=== PATIENT | male | born 1955 | race Caucasian/White ===

== ENCOUNTER 2019-02-13 03:28 | Emergency (ER) | payer MEDICARE, MEDICAID ==
[2019-02-13 03:43] VITALS: BP 158/91; PULSE 113
--- NOTE | 2019-02-13 04:00 | EDM.PDOC ---
ED HPI GENERAL MEDICAL PROBLEM - General Chief Complaint: General Stated Complaint: EPISATXSIS Time Seen by Provider: 02/13/19 03:40 Source of Information: Reports: Patient History Limitations: Reports: No Limitations - History of Present Illness INITIAL COMMENTS - FREE TEXT/NARRATIVE: 63 YO WM presents to ER complaining of epistaxis of the left nare. Pt reports bleeding began approximately 1 hour ago. Pt reports bleeding was mild and he had to blow his nose to get any blood at all to come out. Pt uses oxygen/bipap at home. Pt reports bleeding has stopped at this time. Pt denies lightheadedness. Current BP- 140/80's. Pt takes ASA 81mg but denies use of anticoagulation medications. Onset: Today Duration: Hour(s): (1) Location: Reports: Face Severity: Mild Improves with: Reports: None Worsens with: Reports: None Associated Symptoms: Reports: No Other Symptoms. Denies: Shortness of Breath, Weakness Treatments VENTILATING ENGINEER: Reports: Other (see below) Other Treatments VENTILATING ENGINEER: nasal saline spray - Related Data Allergies Allergy/AdvReac Type Severity Reaction Status Date / Time hay fever Allergy Swelling Uncoded 02/13/19 03:44 Home Meds: Home Meds Albuterol [Proventil] 2 puff INH Q6H PRN 05/19/14 [History] Aspirin [Halfprin] 81 mg PO DAILY 05/19/14 [History] Lisinopril/Hydrochlorothiazide [Lisinopril-Hctz 20-12.5 mg Tab] 1 each PO DAILY 07/13/14 [History] Albuterol/Ipratropium [DuoNeb 3.0-0.5 MG/3 ML] 3 ml INH Q6H PRN 06/19/16 [ History] Arformoterol [Brovana] 2 ml INH BID 06/19/16 [History] Budesonide [Pulmicort] 2 ml INH BID 06/19/16 [History] Codeine Phosphate/Guaifenesin [Cheratussin AC Syrup] 5 - 10 ml PO Q4H PRN [History] Nebivolol HCl [Bystolic] 1 tab PO DAILY 06/19/16 [History] Roflumilast [Daliresp] 1 tab PO DAILY 06/19/16 [History] Umeclidinium [place] [Incruse Ellipta*] 1 puff INH DAILY 06/19/16 [History] ALPRAZolam [Alprazolam] 0.25 mg PO TID PRN 02/13/19 [History] predniSONE [Prednisone] 10 mg PO DAILY 02/13/19 [History] Past Medical History HEENT History: Reports: Cataract Cardiovascular History: Reports: CAD, Cardiomyopathy, High Cholesterol, Hypertension, [place], SOB on Exertion Respiratory History: Reports: COPD, SOB, Other (See Below) Other Respiratory History: Home oxygen Musculoskeletal History: Reports: Arthritis Psychiatric History: Reports: Addiction - Infectious Disease History Infectious Disease History: Reports: Other (See Below) Other Infectious Disease History: Patient is unsure - Past Surgical History HEENT Surgical History: Reports: Cataract Surgery Social & Family History - Family History Family Medical History: Noncontributory HEENT: Reports: None Cardiac: Reports: None Respiratory: Reports: None GI: Reports: None : Reports: None OBGYN: Reports: None Musculoskeletal: Reports: None Neurological: Reports: None Psychiatric: Reports: None Endocrine/Metabolic: Reports: Diabetes, type II, Other (See Below) Hematologic: Reports: None Immunologic: Reports: None Dermatologic: Reports: None Oncologic: Reports: Other (See Below) - Caffeine Use Caffeine Use: Reports: Coffee, Energy Drinks, Soda ED ROS GENERAL - Review of Systems Review Of Systems: See Below Constitutional: Reports: No Symptoms HEENT: Reports: Nosebleed Respiratory: Reports: No Symptoms Cardiovascular: Reports: No Symptoms Endocrine: Reports: No Symptoms GI/Abdominal: Reports: No Symptoms : Reports: No Symptoms Musculoskeletal: Reports: No Symptoms Skin: Reports: No Symptoms Neurological: Reports: No Symptoms Psychiatric: Reports: No Symptoms Hematologic/Lymphatic: Reports: No Symptoms Immunologic: Reports: No Symptoms ED EXAM, GENERAL - Physical Exam Exam: See Below Exam Limited By: No Limitations General Appearance: Alert, WD/WN, No Apparent Distress Nose: Other (no active bleeding but some dried blood to left nare noted on exam) Throat/Mouth: Normal Inspection, Normal Lips, Normal Teeth, Normal Gums, Normal Oropharynx, Normal Voice, No Airway Compromise Head: Atraumatic, Normocephalic ED EPISTAXIS PROCEDURES - Epistaxis Procedure Indication: Controlled Recent anticoagulants/antiplatlets: No Uncontrolled HTN: No Recent septal/nasal surgery: No Site of bleeding: Left Nare Clearing of clots: Patient Blew Nose Topical Meds: Phenylephrine Ice pack to area: Yes Complications: No Course - Vital Signs Last Recorded V/S: Last Vital Signs Temp 36.7 C 02/13/19 03:32 Pulse 113 H 02/13/19 03:32 Resp 20 02/13/19 03:32 BP 158/91 H 02/13/19 03:32 Pulse Ox 93 L 02/13/19 03:32 - Orders/Labs/Meds Orders: Active Orders 24 hr Category Date Time Status Oxymetazoline [Afrin Original 0.05% Nasal [place]] Med 02/13/19 04:00 Once 2 ml GRACIE ONETIME ONE Departure - Departure Time of Disposition: 04:09 Disposition: Home, Self-Care 01 Condition: Good Clinical Impression: Anterior epistaxis - Discharge Information Instructions: Nosebleed, Adult Forms: ED Department Discharge Additional Instructions: 1. Discharge home 2. Vaseline lubrication to mucous membranes daily to avoid drying and bleeding 3. Afrin nasal spray- 2 sprays each nostril as needed with 5 minutes of controlled pressure at home if bleeding returns 4. follow up with PCP for further evaluation and treatment 5. return to ER for worsening symptoms - My Orders Last 24 Hours: My Active Orders 02/13/19 04:00 Oxymetazoline [Afrin Original 0.05% Nasal [place]] 2 ml GRACIE ONETIME ONE - Assessment/Plan Last 24 Hours: My Active Orders 02/13/19 04:00 Oxymetazoline [Afrin Original 0.05% Nasal [place]] 2 ml GRACIE ONETIME ONE Assessment:: 1. Epistasis of left nare- controlled Plan: 1. Discharge home 2. Vaseline lubrication to mucous membranes daily to avoid drying and bleeding 3. Afrin nasal spray- 2 sprays each nostril as needed with 5 minutes of controlled pressure at home if bleeding returns 4. follow up with PCP for further evaluation and treatment 5. return to ER for worsening symptoms
[2019-02-13] MEDS: Oxymetazoline 0.05% Nasal Spray 15 ML Bottle NAS ONE (04:10)
== END 2019-02-13 04:28 | disposition home or self-care (01) ==
LOC: KA.ED 03:28
DX: R04.0 Epistaxis (principal); I25.2 Old myocardial infarction; I10 Essential (primary) hypertension; J44.9 Chronic obstructive pulmonary disease, unspecified; M19.90 Unspecified osteoarthritis, unspecified site; Z79.82 Long term (current) use of aspirin; Z79.899 Other long term (current) drug therapy; Z79.51 Long term (current) use of inhaled steroids; Z91.09 Other allergy status, other than to drugs and biological substances; Z99.81 Dependence on supplemental oxygen
CPT/HCPCS: 99283; A9270; 30901

== ENCOUNTER 2019-04-23 11:51 | Emergency (ER) | payer MEDICARE, MEDICAID ==
[2019-04-23 12:08] VITALS: BP 150/90; PULSE 100
--- NOTE | 2019-04-23 12:34 | EDM.PDOC ---
ED HPI GENERAL MEDICAL PROBLEM - General Chief Complaint: ENT Problem Stated Complaint: BAD TOOTHACHE Time Seen by Provider: 04/23/19 12:00 Source of Information: Reports: Patient History Limitations: Reports: No Limitations - History of Present Illness INITIAL COMMENTS - FREE TEXT/NARRATIVE: 63-year-old male presents emergency room with complaints of increasing mouth pain due to poor dental hygiene. He was seen in the clinic yesterday was given codeine and started on an oral antibiotic. He has a long history of poor dental care. He does not follow with a dentist. He's had prior tooth extractions and erosion of the tooth enamel and gums. Onset: Gradual Duration: Chronic Location: Reports: Face Quality: Reports: Ache Severity: Moderate Improves with: Reports: None Worsens with: Reports: None Associated Symptoms: Reports: Shortness of Breath (Chronic due to severe COPD). Denies: Fever/Chills, Nausea/Vomiting, Weakness Tooth/Teeth Pain Score (Numeric/FACES): 8 - Related Data Allergies Allergy/AdvReac Type Severity Reaction Status Date / Time hay fever Allergy Swelling Uncoded 04/23/19 12:08 Home Meds: Home Meds Albuterol [Proventil] 2 puff INH Q6H PRN 05/19/14 [History] Aspirin [Halfprin] 81 mg PO DAILY 05/19/14 [History] Lisinopril/Hydrochlorothiazide [Lisinopril-Hctz 20-12.5 mg Tab] 1 each PO DAILY 07/13/14 [History] Albuterol/Ipratropium [DuoNeb 3.0-0.5 MG/3 ML] 3 ml INH Q6H PRN 06/19/16 [ History] Arformoterol [Brovana] 2 ml INH BID 06/19/16 [History] Budesonide [Pulmicort] 2 ml INH BID 06/19/16 [History] Codeine Phosphate/Guaifenesin [Cheratussin AC Syrup] 5 - 10 ml PO Q4H PRN [History] Nebivolol HCl [Bystolic] 1 tab PO DAILY 06/19/16 [History] Roflumilast [Daliresp] 1 tab PO DAILY 06/19/16 [History] Umeclidinium [place] [Incruse Ellipta*] 1 puff INH DAILY 06/19/16 [History] ALPRAZolam [Alprazolam] 0.25 mg PO TID PRN 02/13/19 [History] predniSONE [Prednisone] 10 mg PO DAILY 02/13/19 [History] Past Medical History HEENT History: Reports: Cataract, Epistaxis Cardiovascular History: Reports: CAD, Cardiomyopathy, High Cholesterol, Hypertension, [place], SOB on Exertion Respiratory History: Reports: COPD, SOB, Other (See Below) Other Respiratory History: Home oxygen & CPAP Musculoskeletal History: Reports: Arthritis Psychiatric History: Reports: Addiction, Anxiety - Infectious Disease History Infectious Disease History: Reports: Other (See Below) Other Infectious Disease History: Patient is unsure - Past Surgical History Head Surgeries/Procedures: Reports: None HEENT Surgical History: Reports: Cataract Surgery Social & Family History - Family History Family Medical History: Noncontributory HEENT: Reports: None Cardiac: Reports: None Respiratory: Reports: None GI: Reports: None : Reports: None OBGYN: Reports: None Musculoskeletal: Reports: None Neurological: Reports: None Psychiatric: Reports: None Endocrine/Metabolic: Reports: Diabetes, type II, Other (See Below) Hematologic: Reports: None Immunologic: Reports: None Dermatologic: Reports: None Oncologic: Reports: Other (See Below) - Caffeine Use Caffeine Use: Reports: Coffee, Energy Drinks, Soda ED ROS ENT - Review of Systems Review Of Systems: Comprehensive ROS is negative, except as noted in HPI. ED EXAM, ENT - Physical Exam Exam: See Below Exam Limited By: No Limitations General Appearance: Alert, Thin Nose: Normal Inspection Mouth/Throat: Bleeding, Dental Pain, Dental Tenderness, Gum Swelling. No: Dental Abcess, Peritonsillar Mass, Pharyngeal Erythema, Tonsillar Erythema, Tonsillar Exudates, Tonsillar Swelling, Uvular Deviation, Uvular Edema Head: Atraumatic, Normocephalic. No: Facial Tenderness, Sinus Tenderness Neck: Normal Inspection, Supple Respiratory/Chest: No Respiratory Distress, Lungs Clear, Prolonged Expiration ( Due to severe COPD) Cardiovascular: Regular Rate, Rhythm, Systolic Murmur GI/Abdominal: Soft, Non-Tender Neurological: Alert, Oriented, No Motor/Sensory Deficits Course - Vital Signs Last Recorded V/S: Last Vital Signs Temp 98.3 F 04/23/19 12:03 Pulse 100 04/23/19 12:03 Resp 24 H 04/23/19 12:03 BP 150/90 H 04/23/19 12:03 Pulse Ox 91 L 04/23/19 12:03 - Orders/Labs/Meds Meds: Medications Discontinued Medications Generic Name Dose Route Start Last Admin Trade Name Katheryn PRN Reason Stop Dose Admin Ceftriaxone Sodium 1 gm 04/23/19 12:22 Rocephin IM 04/23/19 12:23 ONETIME ONE Ketorolac Tromethamine 30 mg 04/23/19 12:22 Toradol IM 04/23/19 12:23 ONETIME ONE Lidocaine HCl Confirm 04/23/19 12:21 Xylocaine 1% Administered 04/23/19 12:22 Dose 20 ml .ROUTE .STK-MED ONE Departure - Departure Time of Disposition: 12:50 Disposition: Home, Self-Care 01 Condition: Fair Clinical Impression: Dental caries, Dental caries extending into dentin, Dental abscess - Discharge Information Instructions: Dental Abscess, [id number], Dental Extraction, [id number] Referrals: Dionne Gooden PA-C [Primary Care Provider] - Forms: ED Department Discharge - Assessment/Plan Assessment:: 1. Dental pain. 2. Dental abscess Plan: 1. Rocephin 1 g IM given today 2. Toradol 30 mg IM given today. Toradol 10mg TID PO for 5 days. 3. Follow-up with dentist on Thursday. 4. Continue with your codeine and oral antibiotics prescribed by her primary care.
[2019-04-23] MEDS: Ketorolac 30 MG/ML SDV IM ONE (12:40)
[2019-04-23] MEDS: cefTRIAXone 1 GM Vial IM ONE (12:45)
[2019-04-23] MEDS: Lidocaine 1% 20 ML MDV ONE (12:45)
[2019-04-23] MEDS: Ketorolac 10 MG Tab PO SCH (12:50)
== END 2019-04-23 12:55 | disposition home or self-care (01) ==
LOC: KA.ED 11:51
DX: K04.7 Periapical abscess without sinus (principal); K02.9 Dental caries, unspecified; F41.9 Anxiety disorder, unspecified; I25.10 Atherosclerotic heart disease of native coronary artery without angina pectoris; I10 Essential (primary) hypertension; Z79.82 Long term (current) use of aspirin; Z79.899 Other long term (current) drug therapy; Z91.09 Other allergy status, other than to drugs and biological substances
CPT/HCPCS: 96372; 99282; A9270; J0696; J1885; 99283

== ENCOUNTER 2020-10-21 19:55 | Emergency (ER) | payer MEDICARE, MEDICAID ==
--- NOTE | 2020-10-21 20:13 | EDM.PDOC ---
ED HPI GENERAL MEDICAL PROBLEM - General Chief Complaint: General Stated Complaint: Right Upper Leg Pain Time Seen by Provider: 10/21/20 20:13 Source of Information: Reports: Patient - History of Present Illness INITIAL COMMENTS - FREE TEXT/NARRATIVE: Charles, 64-year-old male, presents emergency department this evening with a 5 or 6-day history of pain in his right lower extremity. He states it started with knee pain with mild swelling at its onset. He stated then that the knee has still continued to bother some but not as bad as he has been using Aleve. He states now the pain has become more to the groin, medial thigh and anterior thigh. He states the Aleve is no longer providing any benefit and has noted mild puffiness/swelling to the extremity from the knee and up. Denies any travel other than to [place] for his eye injection every 5 weeks. He does acknowledge that he sits crosslegged at times but otherwise has no provoking activity or positioning for DVT. Denies any injury nor strain. He has had no other issues of acuity with chronic lung disease and hypertension being somewhat controlled. He did not have portable oxygen for his transport to the emergency department and was somewhat winded when he first arrived. Onset: Gradual Onset Date: 10/16/20 Duration: Day(s):, Getting Worse Location: Reports: Lower Extremity, Right Quality: Reports: Ache, Throbbing Severity: Severe Improves with: Reports: Medication Worsens with: Reports: Movement Context: Reports: Activity Associated Symptoms: Reports: No Other Symptoms Right Upper Leg Pain Score (Numeric/FACES): 6 - Related Data Allergies Allergy/AdvReac Type Severity Reaction Status Date / Time hay fever Allergy Swelling Uncoded 10/21/20 20:11 Home Meds: Home Meds Albuterol [Proventil] 2 puff INH Q6H PRN 05/19/14 [History] Aspirin [Halfprin] 81 mg PO DAILY 05/19/14 [History] Lisinopril/Hydrochlorothiazide [Lisinopril-Hctz 20-12.5 mg Tab] 1 each PO DAILY 07/13/14 [History] Albuterol/Ipratropium [DuoNeb 3.0-0.5 MG/3 ML] 3 ml INH Q6H PRN 06/19/16 [History] Arformoterol [Brovana] 2 ml INH BID 06/19/16 [History] Budesonide [Pulmicort] 2 ml INH BID 06/19/16 [History] Codeine Phosphate/Guaifenesin [Cheratussin AC Syrup] 5 - 10 ml PO Q4H PRN 06/19/16 [History] Nebivolol HCl [Bystolic] 10 mg PO DAILY 06/19/16 [History] Roflumilast [Daliresp] 500 mg PO DAILY 06/19/16 [History] Umeclidinium [place] [Incruse Ellipta*] 1 puff INH DAILY 06/19/16 [History] ALPRAZolam [Alprazolam] 0.25 mg PO TID PRN 02/13/19 [History] predniSONE [Prednisone] 10 mg PO DAILY@1200 02/13/19 [History] Past Medical History HEENT History: Reports: Cataract, Epistaxis Other HEENT History: poor dentation Cardiovascular History: Reports: CAD, Cardiomyopathy, High Cholesterol, Hypertension, [place], SOB on Exertion Respiratory History: Reports: COPD, SOB, Other (See Below) Other Respiratory History: Home oxygen & CPAP Musculoskeletal History: Reports: Arthritis Psychiatric History: Reports: Addiction, Anxiety - Infectious Disease History Infectious Disease History: Reports: Other (See Below) Other Infectious Disease History: Patient is unsure - Past Surgical History Head Surgeries/Procedures: Reports: None HEENT Surgical History: Reports: Cataract Surgery Social & Family History - Family History Family Medical History: No Pertinent Family History HEENT: Reports: None Cardiac: Reports: None Respiratory: Reports: None GI: Reports: None : Reports: None OBGYN: Reports: None Musculoskeletal: Reports: None Neurological: Reports: None Psychiatric: Reports: None Endocrine/Metabolic: Reports: Diabetes, type II, Other (See Below) Hematologic: Reports: None Immunologic: Reports: None Dermatologic: Reports: None Oncologic: Reports: Other (See Below) - Tobacco Use Tobacco Use Status *Q: Former Tobacco User - Caffeine Use Caffeine Use: Reports: Coffee, Energy Drinks, Soda ED ROS GENERAL - Review of Systems Review Of Systems: Comprehensive ROS is negative, except as noted in HPI. ED EXAM, GENERAL - Physical Exam Exam: See Below Free Text/Narrative:: Alert, oriented, with no cyanosis nor pallor. HEENT is negative discharge or deformity has 2 L of oxygen in place and is breathing slightly fast in the upper 20s but his saturation is now up to 99%. He is somewhat hypertensive at 133/103 and appears may be slightly anxious secondary of the risk of blood clot that he was informed by a friend. Neck is soft supple no lymphadenopathy. Thorax is raspy diminished bases with no wheezes nor crackles. Cardiac is S1-S2 tachycardic low 100 and coming down in the mid 90s during examination. I do not appreciate any significant murmur. Abdomen is soft no tenderness. Femoral pulses are present and equal bilateral. There is tenderness to the right anterior medial thigh and the proximal half. There is no cyanosis, ecchymosis, no evidence of injury to either of the lower extremities with both post terrier tibialis and dorsalis pedis pulses present. Skin is warm and dry no evidence of cyanosis no delay in capillary refill to the feet. Palpable tenderness with no musculature nor bone abnormality palpated. There is no tenderness in the hip region with no crepitus and motion of the hip. He is able to flex and extend the knee as well as the hip with mild discomfort with flexion of the hip to the thigh region. Course - Vital Signs Last Recorded V/S: Last Vital Signs Temp 97.0 F 10/21/20 20:09 Pulse 105 H 10/21/20 20:15 Resp 28 H 10/21/20 20:15 BP 133/103 H 10/21/20 20:42 Pulse Ox 97 10/21/20 20:15 - Orders/Labs/Meds Labs: Laboratory Tests 10/21/20 10/21/20 10/21/20 Range/Units 20:35 20:35 20:35 WBC 10.00 (5.00-10.00) 10^3/uL RBC 4.40 L (4.50-6.00) 10^6/uL Hgb 13.3 (13.0-17.0) g/dL Hct 39.2 L (40.0-52.0) % MCV 89.1 (82.0-92.0) fL MCH 30.2 (27.0-31.0) pg MCHC 33.9 (32.0-36.0) g/dL RDW 13.0 (11.5-14.5) % Plt Count 283 (150-400) 10^3/uL MPV 8.0 (7.4-10.4) fL Immature Gran % (Auto) 0.1 (0.0-5.0) % Neut % (Auto) 88.0 H (50.0-70.0) % Lymph % (Auto) 3.5 L (20.0-40.0) % [place] % (Auto) 8.0 (2.0-8.0) % Eos % (Auto) 0.2 L (1.0-3.0) % Baso % (Auto) 0.2 (0.0-1.0) % Neut # (Auto) 8.80 H (2.50-7.00) 10^3/uL Lymph # (Auto) 0.35 L (1.00-4.00) 10^3/uL [place] # (Auto) 0.80 (0.10-0.80) 10^3/uL Eos # (Auto) 0.02 L (0.10-0.30) 10^3/uL Baso # (Auto) 0.02 (0.00-0.10) 10^3/uL Immature Gran # (Auto) 0.01 (0.00-0.50) 10^3/uL D-Dimer, Quantitative < 100 (<400) ng/mL Sodium 130 L (136-145) mmol/L Potassium 3.9 (3.5-5.1) mmol/L Chloride 91 L (98-107) mmol/L Carbon Dioxide 32.5 H (21.0-32.0) mmol/L Anion Gap 10.4 (5-15) mmol/L BUN 19 H (7-18) mg/dL Creatinine 0.88 (0.51-1.17) mg/dL Est Cr Clr Drug Dosing 70.36 mL/min Estimated GFR (MDRD) > 60 mL/min Glucose 126 (70-140) mg/dL Calcium 9.2 (8.7-10.3) mg/dL Total Bilirubin 0.5 (0.2-1.0) mg/dL AST 21 (15-37) U/L ALT 33 (14-63) U/L Alkaline Phosphatase 67 (46-116) U/L Total Protein 7.0 (6.4-8.2) g/dL Albumin 4.00 (3.40-5.00) g/dL Meds: Medications Discontinued Medications Generic Name Dose Route Start Last Admin Trade Name Katheryn PRN Reason Stop Dose Admin Clonidine HCl 0.1 mg 10/21/20 20:38 10/21/20 20:42 Clonidine 0.1 Mg Tab PO 10/21/20 20:39 0.1 mg ONETIME ONE Administration Ketorolac Tromethamine 60 mg 10/21/20 21:06 Ketorolac 60 Mg/2 Ml Sdv IM 10/21/20 21:07 ONETIME ONE Departure - Departure Time of Disposition: 21:13 Disposition: Home, Self-Care 01 Condition: Fair Clinical Impression: Right thigh pain Hypertension Qualifiers: Hypertension type: essential hypertension Qualified Code(s): I10 - Essential (primary) hypertension - Discharge Information *PRESCRIPTION DRUG MONITORING PROGRAM REVIEWED*: Not Applicable *COPY OF PRESCRIPTION DRUG MONITORING REPORT IN PATIENT MARYSE: Not Applicable Instructions: Hypertension, Adult, [id number] Referrals: Dionne Gooden PA-C [Primary Care Provider] - Forms: ED Department Discharge Additional Instructions: Your lab work is all within normal limits other than a slight shift in your electrolytes. Your kidney function is good as well as the D-dimer which measures the risk for blood clot is in the negative range. We will give you an injection of Toradol here tonight that will help with inflammation and pain. Do not take any more Aleve or naproxen sodium until tomorrow. If this does not give you adequate control of your discomfort, consider contacting the clinic for a recheck as needed. If this medication is beneficial for you and your pain continues starts to increase again tomorrow, consider contacting the clinic to discuss medication variations in the options. Physical therapy may be a consideration for this as it appears it might be a muscle strain to the groin region. You may attempt heat or ice to the area to see if that helps. Continue all of your prescription medications as directed. Follow-up with clinic as needed or return to the emergency department if becomes severe in the non-clinic hours. Sepsis Event Note (ED) - Evaluation Sepsis Screening Result: No Definite Risk - Focused Exam Vital Signs: Vital Signs Temp Pulse Resp BP BP Pulse Ox 10/21/20 20:42 133/103 H 10/21/20 20:15 105 H 28 H 155/101 H 97 10/21/20 20:09 97.0 F 108 H 32 H 171/111 H 95 - Problem List & Annotations (1) Right thigh pain SNOMED Code(s): 21920499, 896203069 Code(s): M79.651 - PAIN IN RIGHT THIGH Status: Acute Priority: High (2) Hypertension SNOMED Code(s): 13235374 Code(s): I10 - ESSENTIAL (PRIMARY) HYPERTENSION Status: Chronic Priority: Medium Qualifiers: Hypertension type: essential hypertension Qualified Code(s): I10 - Essential (primary) hypertension - Problem List Review Problem List Initiated/Reviewed/Updated: Yes - Assessment/Plan Plan: Your lab work is all within normal limits other than a slight shift in your electrolytes. Your kidney function is good as well as the D-dimer which measures the risk for blood clot is in the negative range. We will give you an injection of Toradol here tonight that will help with inflammation and pain. Do not take any more Aleve or naproxen sodium until tomorrow. If this does not give you adequate control of your discomfort, consider contacting the clinic for a recheck as needed. If this medication is beneficial for you and your pain continues starts to increase again tomorrow, consider contacting the clinic to discuss medication variations in the options. Physical therapy may be a consideration for this as it appears it might be a muscle strain to the groin region. You may attempt heat or ice to the area to see if that helps. Continue all of your prescription medications as directed. Follow-up with clinic as needed or return to the emergency department if becomes severe in the non-clinic hours.
[2020-10-21] MEDS ORDERED: cloNIDine 0.1 MG Tab PO ONE (20:38)
[2020-10-21 21:04] LABS: ANION GAP 10.4 mmol/L (5-15); CHLORIDE,CL 91 mmol/L (98-107); SODIUM,NA 130 mmol/L (136-145)
[2020-10-21] MEDS ORDERED: Ketorolac 60 MG/2 ML SDV IM ONE (21:06)
[2020-10-21 21:13] VITALS: BP 134/93; PULSE 89
== END 2020-10-21 21:22 | disposition home or self-care (01) ==
LOC: KA.ED 19:55
DX: M79.651 Pain in right thigh (principal); I10 Essential (primary) hypertension; I25.10 Atherosclerotic heart disease of native coronary artery without angina pectoris; I11.9 Hypertensive heart disease without heart failure; E78.00 Pure hypercholesterolemia, unspecified; I25.2 Old myocardial infarction; J44.9 Chronic obstructive pulmonary disease, unspecified; Z91.048 Other nonmedicinal substance allergy status
CPT/HCPCS: 36415; 80053; 85025; 85379; 96372; 99283; A9270-GY; J1885

== ENCOUNTER 2020-10-24 09:00 | Inpatient (IN) | payer MEDICARE, MEDICAID ==
[2020-10-24] MEDS ORDERED: Sodium Chloride 0.9% 10 ML Syringe FLUSH PRN (09:15)
--- NOTE | 2020-10-24 09:18 | EDM.PDOC ---
ED HPI GENERAL MEDICAL PROBLEM - General Chief Complaint: Lower Extremity Injury/Pain Stated Complaint: LEG PAIN,SOB Time Seen by Provider: 10/24/20 09:10 Source of Information: Reports: Patient History Limitations: Reports: No Limitations - History of Present Illness INITIAL COMMENTS - FREE TEXT/NARRATIVE: 64 YO WM PRESENTS TO ER WITH RIGHT THIGH PAIN AND SWELLING. PT REPORTS HE WAS SEEN IN ER 2 DAYS AGO AND THEN IN CLINIC YESTERDAY FOR SAME COMPLAINT. PT REPORTS HE'S SCHEDULED FOR VENOUS DOPPLER THIS AM BUT HE WAS HAVING PROGRESSIVE SHORTNESS OF BREATH WHICH WORSENED THIS AM PROMPTING ER EVALUATION. PT WITH SEVERE COPD AND O2 DEPENDENT AT HOME. PT DENIES HAVING TO USE MORE O2 AT HOME AND IS CURRENTLY ON 2L O2 WITH SAO2 94%. PT DENIES CHEST PAIN OR PEDAL EDEMA. PT DENIES FEVER/CHILLS, NO NAUSEA/VOMITING. PT REPORTS NONPRODUCTIVE COUGH WITH CHRONIC CHEST CONGESTION. Duration: Week(s): (1) Location: Reports: Lower Extremity, Right, Generalized Quality: Reports: Ache Severity: Mild Associated Symptoms: Reports: Cough, Malaise, Shortness of Breath. Denies: Confusion, Chest Pain, Diaphoresis, Fever/Chills, Headaches, Nausea/Vomiting, Rash, Syncope Treatments UNDERGRADUATE INTERN: Reports: Oxygen Right Upper Leg Pain Score (Numeric/FACES): 9 - Related Data Allergies Allergy/AdvReac Type Severity Reaction Status Date / Time hay fever Allergy Swelling Uncoded 10/24/20 09:03 Home Meds: Home Meds Albuterol [Proventil] 2 puff INH Q6H PRN 05/19/14 [History] Aspirin [Halfprin] 81 mg PO DAILY 05/19/14 [History] Lisinopril/Hydrochlorothiazide [Lisinopril-Hctz 20-12.5 mg Tab] 1 each PO DAILY 07/13/14 [History] Albuterol/Ipratropium [DuoNeb 3.0-0.5 MG/3 ML] 3 ml INH Q6H PRN 06/19/16 [History] Arformoterol [Brovana] 2 ml INH BID 06/19/16 [History] Budesonide [Pulmicort] 2 ml INH BID 06/19/16 [History] Codeine Phosphate/Guaifenesin [Cheratussin AC Syrup] 5 - 10 ml PO Q4H PRN 06/19/16 [History] Nebivolol HCl [Bystolic] 10 mg PO DAILY 06/19/16 [History] Roflumilast [Daliresp] 500 mg PO DAILY 06/19/16 [History] Umeclidinium Boron [Incruse Ellipta*] 1 puff INH DAILY 06/19/16 [History] ALPRAZolam [Alprazolam] 0.25 mg PO TID PRN 02/13/19 [History] predniSONE [Prednisone] 10 mg PO DAILY@1200 02/13/19 [History] Past Medical History HEENT History: Reports: Cataract, Epistaxis Other HEENT History: poor dentation Cardiovascular History: Reports: CAD, Cardiomyopathy, High Cholesterol, Hypertension, RI, SOB on Exertion Respiratory History: Reports: COPD, SOB, Other (See Below) Other Respiratory History: Home oxygen & CPAP Musculoskeletal History: Reports: Arthritis Psychiatric History: Reports: Addiction, Anxiety - Infectious Disease History Infectious Disease History: Reports: Other (See Below) Other Infectious Disease History: Patient is unsure - Past Surgical History Head Surgeries/Procedures: Reports: None HEENT Surgical History: Reports: Cataract Surgery Social & Family History - Family History Family Medical History: No Pertinent Family History HEENT: Reports: None Cardiac: Reports: None Respiratory: Reports: None GI: Reports: None : Reports: None OBGYN: Reports: None Musculoskeletal: Reports: None Neurological: Reports: None Psychiatric: Reports: None Endocrine/Metabolic: Reports: Diabetes, type II, Other (See Below) Hematologic: Reports: None Immunologic: Reports: None Dermatologic: Reports: None Oncologic: Reports: Other (See Below) - Caffeine Use Caffeine Use: Reports: Coffee Review of Systems - Review of Systems Review Of Systems: See Below Constitutional: Reports: No Symptoms Eyes: Reports: No Symptoms Ears: Reports: No Symptoms Nose: Reports: No Symptoms Mouth/Throat: Reports: No Symptoms Respiratory: Reports: Shortness of Breath, Wheezing, Cough. Denies: Hemoptysis Cardiovascular: Reports: No Symptoms GI/Abdominal: Reports: No Symptoms Genitourinary: Reports: No Symptoms Musculoskeletal: Reports: Leg Pain Skin: Reports: Bruising, Erythema Neurological: Reports: No Symptoms Psychiatric: Reports: No Symptoms ED EXAM, GENERAL - Physical Exam Exam: See Below Exam Limited By: No Limitations General Appearance: Alert, WD/WN, No Apparent Distress Head: Atraumatic, Normocephalic Neck: Normal Inspection, Supple, Non-Tender, Full Range of Motion Respiratory/Chest: No Respiratory Distress, Chest Non-Tender, Decreased Breath Sounds, Wheezing, Accessory Muscle Use Cardiovascular: Normal Peripheral Pulses, Regular Rate, Rhythm, No Edema, No Gallop, No JVD, No Murmur, No Rub GI/Abdominal: Normal Bowel Sounds, Soft, Non-Tender, No Organomegaly, No Distention, No Abnormal Bruit, No Mass Back Exam: Normal Inspection, Full Range of Motion, NT Extremities: Normal Inspection, Normal Range of Motion, Non-Tender, Normal Capillary Refill, No Pedal Edema Neurological: Alert, Oriented, CN II-XII Intact, Normal Cognition, Normal Gait, Normal Reflexes, No Motor/Sensory Deficits Psychiatric: Normal Affect, Normal Mood Skin Exam: Warm, Dry, Intact, Normal Color, No Rash Lymphatic: No Adenopathy #1 Interpretation EKG Date: 10/24/20 Time: 09:25 Rhythm: NSR Rate (Beats/Min): 93 [place]: Normal QRS: RBBB ST-T: Normal QT: Normal Course - Vital Signs Last Recorded V/S: Last Vital Signs Temp 99.0 F 10/24/20 09:06 Pulse 100 10/24/20 10:24 Resp 24 H 10/24/20 09:06 BP 152/96 H 10/24/20 09:06 Pulse Ox 97 10/24/20 09:06 - Orders/Labs/Meds Orders: Active Orders 24 hr Category Date Time Status EKG Documentation Completion [RC] ASDIRECTED Care 10/24/20 09:17 Active Peripheral IV Care [RC] . DIRECTED Care 10/24/20 09:17 Active RT Aerosol Therapy [RC] ASDIRECTED Care 10/24/20 10:09 Active CORONAVIRUS COVID-19 RAPID [MOLEC] Stat Lab 10/24/20 09:48 Ordered Sodium Chloride 0.9% @ 999 MLS/HR (1000ml) Med 10/24/20 10:37 Ordered Sodium Chloride 0.9% [Normal Saline] 1,000 ml IV .BOLUS Sodium Chloride 0.9% [Normal Saline] 100 ml Med 10/24/20 10:45 Active IV ASDIRECTED Sodium Chloride 0.9% [Normal Saline] 50 ml Med 10/24/20 09:45 Active IV ASDIRECTED Sodium Chloride 0.9% [Saline Flush] Med 10/24/20 09:15 Active 10 ml FLUSH Q8HR PRN Peripheral IV Insertion Adult [OM.PC] Routine Oth 10/24/20 09:15 Ordered EKG 12 Lead [EK] Stat Ther 10/24/20 09:15 Ordered Medication Orders Sodium Chloride (Normal Saline) 50 mls @ 200 mls/min IV ASDIRECTED AXEL Last Admin: 10/24/20 09:59 Dose: 200 mls/min Documented by: MAUREEN Sodium Chloride (Normal Saline) 100 mls @ 200 mls/hr IV ASDIRECTED AXEL Sodium Chloride (Normal Saline) 1,000 mls @ 999 mls/hr IV .BOLUS ONE Stop: 10/24/20 11:37 Sodium Chloride (Sodium Chloride 0.9% 10 Ml Syringe) 10 ml FLUSH Q8HR PRN PRN Reason: keep vein open Labs: Laboratory Tests 10/24/20 10/24/20 10/24/20 Range/Units 09:35 09:35 09:35 WBC 9.32 (5.00-10.00) 10^3/uL RBC 4.02 L (4.50-6.00) 10^6/uL Hgb 12.4 L (13.0-17.0) g/dL Hct 35.2 L (40.0-52.0) % MCV 87.6 (82.0-92.0) fL MCH 30.8 (27.0-31.0) pg MCHC 35.2 (32.0-36.0) g/dL RDW 12.8 (11.5-14.5) % Plt Count 270 (150-400) 10^3/uL MPV 8.4 (7.4-10.4) fL Immature Gran % (Auto) 0.2 (0.0-5.0) % Neut % (Auto) 85.5 H (50.0-70.0) % Lymph % (Auto) 4.8 L (20.0-40.0) % Davis % (Auto) 8.8 H (2.0-8.0) % Eos % (Auto) 0.4 L (1.0-3.0) % Baso % (Auto) 0.3 (0.0-1.0) % Neut # (Auto) 7.96 H (2.50-7.00) 10^3/uL Lymph # (Auto) 0.45 L (1.00-4.00) 10^3/uL Davis # (Auto) 0.82 H (0.10-0.80) 10^3/uL Eos # (Auto) 0.04 L (0.10-0.30) 10^3/uL Baso # (Auto) 0.03 (0.00-0.10) 10^3/uL Immature Gran # (Auto) 0.02 (0.00-0.50) 10^3/uL PT 9.5 (9.2-11.2) SEC INR 0.9 (0.9-1.1) APTT 21.9 L (22.8-31.4) SEC Sodium 127 L (136-145) mmol/L Potassium 4.0 (3.5-5.1) mmol/L Chloride 90 L (98-107) mmol/L Carbon Dioxide 32.9 H (21.0-32.0) mmol/L Anion Gap 8.1 (5-15) mmol/L BUN 14 (7-18) mg/dL Creatinine 0.77 (0.51-1.17) mg/dL Est Cr Clr Drug Dosing 77.22 mL/min Estimated GFR (MDRD) > 60 mL/min Glucose 108 (70-140) mg/dL Calcium 8.6 L (8.7-10.3) mg/dL Total Bilirubin 0.6 (0.2-1.0) mg/dL AST 28 (15-37) U/L ALT 28 (14-63) U/L Alkaline Phosphatase 62 (46-116) U/L Creatine Kinase 228 (26-276) U/L CK-MB (CK-2) 6.51 H* (0.00-3.60) ng/mL Troponin I High Sens 11.600 (0-76.000) pg/mL B-Natriuretic Peptide 40 (0-100) pg/mL Total Protein 6.7 (6.4-8.2) g/dL Albumin 3.50 (3.40-5.00) g/dL Meds: Medications Generic Name Dose Route Start Last Admin Trade Name Freq PRN Reason Stop Dose Admin Sodium Chloride 50 mls @ 200 mls/min 06/09/21 09:45 10/24/20 09:59 Normal Saline IV 200 mls/min ASDIRECTED AXEL Administration Sodium Chloride 100 mls @ 200 mls/hr 10/24/20 10:45 Normal Saline IV ASDIRECTED AXEL Sodium Chloride 1,000 mls @ 999 mls/hr 10/24/20 10:37 Normal Saline IV 10/24/20 11:37 .BOLUS ONE Sodium Chloride 10 ml 10/24/20 09:15 Sodium Chloride 0.9% 10 Ml Syringe FLUSH Q8HR PRN keep vein open Discontinued Medications Generic Name Dose Route Start Last Admin Trade Name Freq PRN Reason Stop Dose Admin Albuterol/Ipratropium Confirm 10/24/20 09:37 10/24/20 10:18 Albuterol/Ipratropium 3.0-0.5 Mg/3 Ml Neb Soln Administered 10/24/20 09:38 Not Given Dose 3 ml .ROUTE .STK-MED ONE Albuterol/Ipratropium 3 ml 10/24/20 10:09 10/24/20 10:24 Albuterol/Ipratropium 3.0-0.5 Mg/3 Ml Neb Soln NEB 10/24/20 10:10 3 ml ONETIME ONE Administration Iopamidol 75 ml 10/24/20 09:31 10/24/20 09:59 Iopamidol 755 Mg/Ml 75 Ml Bottle IVPUSH 10/24/20 09:32 75 ml ONETIME ONE Administration Iopamidol 75 ml 10/24/20 10:34 10/24/20 10:40 Iopamidol 755 Mg/Ml 75 Ml Bottle IVPUSH 10/24/20 10:35 Not Given ONETIME ONE - Radiology Interpretation Free Text/Narrative:: VENOUS DOPPLER OF RIGHT LOWER EXTREMITY- NEGATIVE FOR DVT CXR-EMPHYSEMA CHANGES WITH NO ACUTE DISEASE CTA CHEST- Departure - Departure Time of Disposition: 11:13 Disposition: Refer to Observation Condition: Fair Clinical Impression: COPD with exacerbation, Cellulitis of right lower extremity, Psoas mass - Discharge Information Referrals: Dionne Gooden PA-C [Primary Care Provider] - Forms: ED Department Discharge Sepsis Event Note (ED) - Evaluation Sepsis Screening Result: No Definite Risk - Focused Exam Vital Signs: Vital Signs Temp Pulse Resp BP Pulse Ox 10/24/20 10:24 100 06/09/21 09:06 99.0 F 106 H 24 H 152/96 H 97 - My Orders Last 24 Hours: My Active Orders 10/24/20 09:15 Sodium Chloride 0.9% [Saline Flush] 10 ml FLUSH Q8HR PRN Peripheral IV Insertion Adult [OM.PC] Routine EKG 12 Lead [EK] Stat 10/24/20 09:17 EKG Documentation Completion [RC] ASDIRECTED Peripheral IV Care [RC] . DIRECTED 10/24/20 09:45 Sodium Chloride 0.9% [Normal Saline] 50 ml IV ASDIRECTED 10/24/20 09:48 CORONAVIRUS COVID-19 RAPID [MOLEC] Stat 10/24/20 10:09 RT Aerosol Therapy [RC] ASDIRECTED 10/24/20 10:37 Sodium Chloride 0.9% @ 999 MLS/HR (1000ml) Sodium Chloride 0.9% [Normal Saline] 1,000 ml IV .BOLUS 10/24/20 10:45 Sodium Chloride 0.9% [Normal Saline] 100 ml IV ASDIRECTED - Assessment/Plan Last 24 Hours: My Active Orders 10/24/20 09:15 Sodium Chloride 0.9% [Saline Flush] 10 ml FLUSH Q8HR PRN Peripheral IV Insertion Adult [OM.PC] Routine EKG 12 Lead [EK] Stat 10/24/20 09:17 EKG Documentation Completion [RC] ASDIRECTED Peripheral IV Care [RC] . DIRECTED 10/24/20 09:45 Sodium Chloride 0.9% [Normal Saline] 50 ml IV ASDIRECTED 10/24/20 09:48 CORONAVIRUS COVID-19 RAPID [MOLEC] Stat 10/24/20 10:09 RT Aerosol Therapy [RC] ASDIRECTED 10/24/20 10:37 Sodium Chloride 0.9% @ 999 MLS/HR (1000ml) Sodium Chloride 0.9% [Normal Saline] 1,000 ml IV .BOLUS 10/24/20 10:45 Sodium Chloride 0.9% [Normal Saline] 100 ml IV ASDIRECTED Assessment:: 1. COPD EXACERBATION 2. RIGHT LEG CELLULITIS WITH POSSIBLE PSOAS INVOLVEMENT Plan: 1. ADMIT TO MEDICINE- DR RETANA ACCEPTING FOR OBSERVATION AT 1115 2. ROCEPHIN 1G IV NOW 3. SOLUMEDROL 125MG IV NOW 4. PAIN CONTROL FOR RIGHT LOWER EXTREMITY-CONSIDER PT CONSULTATION 5. SUPPLEMENTAL O2 6. DUONEBS Q4 AND PRN
[2020-10-24] MEDS ORDERED: Iopamidol 755 Mg/ML 75 ML Bottle IVPUSH ONE ×2 (09:31→10:34)
[2020-10-24] MEDS ORDERED: Albuterol/Ipratropium 3.0-0.5 MG/3 ML Neb Soln ONE (09:37)
[2020-10-24] MEDS ORDERED: Sodium Chloride 0.9% 50 ML IV SCH (09:45)
[2020-10-24] MEDS ORDERED: Albuterol/Ipratropium 3.0-0.5 MG/3 ML Neb Soln NEB ONE (10:09)
[2020-10-24 10:10] LABS: ANION GAP 8.1 mmol/L (5-15); CHLORIDE,CL 90 mmol/L (98-107); SODIUM,NA 127 mmol/L (136-145)
--- NOTE | 2020-10-24 10:27 | US ---
[id number] US/US Venous Doppler LE Right EXAM: US Venous Doppler LE Right INDICATION: SHORTNESS OF BREATH, RIGHT LEG PAIN. COMPARISON: None. DISCUSSION: The deep venous structures are compressible. No valvular incompetence or pulsatility seen. Spontaneity, phasicity and response to augmentation were noted by the technologist. IMPRESSION: Negative for DVT. Dom Purcell MD 10/24/20 1026 Thank you for allowing us to participate in the care of your patient.
--- NOTE | 2020-10-24 10:34 | CR ---
[id number] RAD/RAD Chest PA or AP 1V EXAM: RAD Chest PA or AP 1V INDICATION: SHORTNESS OF BREATH. COMPARISON: Radiograph from July 21, 2019. CT from 2017. DISCUSSION/IMPRESSION: Cardiomediastinal silhouette is normal in size and contour. Bilateral symmetric lung hyperinflation is similar to the prior examination consistent with parenchymal emphysema. Lungs are clear. No pleural effusion or pneumothorax. Dom Purcell MD 10/24/20 1033 Thank you for allowing us to participate in the care of your patient.
[2020-10-24] MEDS ORDERED: Sodium Chloride 0.9% 1,000 ML IV ONE ×2 (10:37→11:10)
[2020-10-24 10:43] LABS: PTT,PARTIAL THROMBOPLSTIN TIME 21.9 SEC (22.8-31.4)
[2020-10-24] MEDS ORDERED: Sodium Chloride 0.9% 100 ML IV SCH (10:45)
--- NOTE | 2020-10-24 10:45 | CT ---
[id number] CT/CTA Chest Exam: CTA Chest Clinical Data: SHORTNESS OF BREATH COMPARISON: CORRELATION IS MADE WITH NOVEMBER 12, 2017 FINDINGS: There are no pulmonary emboli There is centrilobular emphysema The right psoas muscle is asymmetrically enlarged representing a change since the last exam Question raised if this is a mass or related to a neurologic condition Consider follow-up MRI may be helpful but first clinical correlation is needed IMPRESSION: NO PULMONARY EMBOLI Steve Ye MD 10/24/20 1044 Thank you for allowing us to participate in the care of your patient.
[2020-10-24] MEDS ORDERED: Ondansetron 4 MG/2 ML SDV IVPUSH ONE (11:10)
[2020-10-24] MEDS ORDERED: cefTRIAXone 1 GM Vial IVPUSH ONE (11:10)
[2020-10-24] MEDS ORDERED: Morphine 4 MG/ML Syringe IVPUSH ONE (11:10)
[2020-10-24] MEDS ORDERED: methylPREDNISolone Sodium Succinate 125 MG/2 ML SDV IVPUSH ONE (11:10)
[2020-10-24] MEDS ORDERED: Albuterol/Ipratropium 3.0-0.5 MG/3 ML Neb Soln NEB PRN (11:17)
[2020-10-24] MEDS: ALPRAZolam 0.25 MG Tab PO PRN (18:19)
[2020-10-24] MEDS: Codeine/guaiFENesin 10-100 MG/5 ML Syrup 5 ML Cup PO PRN (18:19)
[2020-10-24] MEDS: Albuterol 8 GM Inhaler INH PRN (18:20)
[2020-10-24] MEDS: Arformoterol 15 MCG/2 ML Neb Soln INH SCH (20:57)
[2020-10-24] MEDS: Budesonide 0.5 MG/2 ML Neb Susp INH SCH (20:57)
[2020-10-25] MEDS: Acetaminophen/HYDROcodone 325-5 MG Tab PO PRN ×3 (02:46→20:56)
[2020-10-25] MEDS: ALPRAZolam 0.25 MG Tab PO PRN ×2 (02:46→12:20)
[2020-10-25] MEDS: Codeine/guaiFENesin 10-100 MG/5 ML Syrup 5 ML Cup PO PRN ×2 (02:51→04:24)
[2020-10-25] MEDS: Albuterol/Ipratropium 3.0-0.5 MG/3 ML Neb Soln INH PRN (04:28)
[2020-10-25 08:03] LABS: CHLORIDE,CL 94 mmol/L (98-107); SODIUM,NA 130 mmol/L (136-145)
[2020-10-25] MEDS: Aspirin 81 MG Tab.EC PO SCH (08:24)
[2020-10-25] MEDS: Lisinopril 20 MG Tab PO SCH (08:24)
[2020-10-25] MEDS: Hydrochlorothiazide 12.5 MG Cap PO SCH (08:24)
[2020-10-25] MEDS: Roflumilast 500 MCG Tab PO SCH (08:25)
[2020-10-25] MEDS: Arformoterol 15 MCG/2 ML Neb Soln INH SCH ×2 (08:33→20:56)
[2020-10-25] MEDS: Budesonide 0.5 MG/2 ML Neb Susp INH SCH ×2 (09:47→20:56)
[2020-10-25] MEDS: Tiotropium Bromide 4 GM Inhalation Spray (2.5mcg/1 dose; 10 doses) INH SCH (09:59)
[2020-10-25] MEDS: predniSONE 10 MG Tab PO SCH (12:20)
--- NOTE | 2020-10-25 16:01 | PN ---
10/25/2020 PATIENT NAME: ALBERTO MAS SUBJECTIVE: This is a 64-year-old white male who presented to the emergency room yesterday with right thigh pain. He had seen me in the clinic the day prior. He was scheduled for a venous Doppler this morning. The patient states that the pain in his thigh was getting worse. He was also having progressive shortness of breath, which worsened the morning of his ER evaluation. He does have severe COPD and is oxygen dependent at home. The patient's lab work in the ER was significant for hemoglobin of 12.4. Sodium was low at 127, potassium was 4.0. CK-MB was 6.51. The patient denied any recent injury to the area. The patient received nebulizer treatments in the emergency room. He did have the venous Doppler of the right lower extremity which was negative for DVT. The emergency room provider felt as though this was a cellulitis and treated him with Rocephin. Dr. Ginger Gerard evaluated the patient later and felt as though it was just a broken blood vessel and discontinued the antibiotics. For his shortness of breath, he did receive nebulizer treatments as well as Solu-Medrol 125 mg IV x1. Lab work from today shows a hemoglobin of 11.1. His sodium went from 127 to 130. Potassium was 4.9. The remainder of his chemistry panel was normal. He was negative for COVID. PHYSICAL EXAMINATION: VITAL SIGNS: Temperature is 97.9, pulse 108, respirations 22, blood pressure 161/91 and 140/89. The patient is oxygenating at 97% on 2 L of oxygen. GENERAL: The patient does appear to be somewhat short of breath especially when he is trying to talk. SKIN: Warm, pale, dry to touch. CARDIAC: S1, S2 to be normal. Rate and rhythm are regular. No murmur, click, or gallop is auscultated. LUNGS: Clear at this time. ABDOMEN: Scaphoid, soft, nontender. There is an ecchymotic area on the inner aspect of his right inner thigh. It is not warm, however, the patient is complaining of considerable amount of pain in the area. He does have intact pulses distal to the area of concern. IMPRESSION: 1. Ecchymosis of the right inner thigh without history of injury or trauma. The patient has received one dose of ceftriaxone. Dr. Ginger Gerard felt as though this was just a broken blood vessel and discontinued his antibiotics. His venous Doppler of the right lower extremity was negative for DVT. 2. Severe chronic obstructive pulmonary disease. He does seem to be oxygenating okay on 2 L of oxygen at 97%. He did receive Solu-Medrol 125 mg x1 in the emergency room. The patient does take prednisone at home. 3. Pain control. His pain seems out of proportion to what appears to be a broken blood vessel with ecchymosis. He is receiving hydrocodone as needed for pain. If he remains stable, he will go home tomorrow. I did confirm his code status which is DNR/DNI. I did discuss the case with Dr. Ginger Gerard via telephone. /[id number]/MODL
[2020-10-26] MEDS: Acetaminophen/HYDROcodone 325-5 MG Tab PO PRN (03:01)
[2020-10-26] MEDS: Codeine/guaiFENesin 10-100 MG/5 ML Syrup 5 ML Cup PO PRN ×3 (03:01→21:38)
[2020-10-26] MEDS: ALPRAZolam 0.25 MG Tab PO PRN ×2 (03:01→21:38)
[2020-10-26] MEDS: Albuterol/Ipratropium 3.0-0.5 MG/3 ML Neb Soln INH PRN ×2 (03:01→15:13)
[2020-10-26] MEDS ORDERED: Ketorolac 30 MG/ML SDV IVPUSH ONE (08:01)
[2020-10-26] MEDS: Arformoterol 15 MCG/2 ML Neb Soln INH SCH ×2 (08:23→21:18)
[2020-10-26] MEDS: Hydrochlorothiazide 12.5 MG Cap PO SCH (08:57)
[2020-10-26] MEDS: Lisinopril 20 MG Tab PO SCH (08:57)
[2020-10-26] MEDS: Aspirin 81 MG Tab.EC PO SCH (08:57)
[2020-10-26] MEDS: Roflumilast 500 MCG Tab PO SCH (08:57)
[2020-10-26] MEDS: Lidocaine 5% 700 MG Patch TOP SCH (08:59)
[2020-10-26] MEDS: Budesonide 0.5 MG/2 ML Neb Susp INH SCH ×2 (09:24→21:40)
[2020-10-26] MEDS: Tiotropium Bromide 4 GM Inhalation Spray (2.5mcg/1 dose; 10 doses) INH SCH (09:44)
[2020-10-26] MEDS ORDERED: HYDROmorphone 1 MG/ML Syringe IVPUSH ONE (10:13)
[2020-10-26] MEDS: Albuterol 8 GM Inhaler INH PRN ×2 (11:00→15:05)
[2020-10-26 11:27] LABS: ANION GAP 8.4 mmol/L (5-15); CHLORIDE,CL 92 mmol/L (98-107); SODIUM,NA 131 mmol/L (136-145)
--- NOTE | 2020-10-26 12:14 | PN ---
PATIENT NAME: ALBERTO MAS HISTORY OF PRESENT ILLNESS: This is a 64-year-old male who looks older than his stated age, who was admitted to the emergency room on 10/24/2020. The patient was seen the day prior with an ecchymotic area on the inner aspect of his right thigh. He was scheduled for a venous ultrasound of the right lower extremity. This was performed on the day of his emergency room presentation and found to be negative for DVT. Initially, it was thought that he had cellulitis. Dr. Gerard evaluated the patient and felt as though it was a broken blood vessel. The patient's pain has been treated with hydrocodone, however, it is not very effective. The patient has an unusual routine at home with his COPD medications. He also takes a cough syrup with codeine that helps him to expectorate sputum. The patient does have severe COPD, but has been oxygenating at 96% to 97% on 2 L of oxygen. He does use oxygen at home. The patient had the venous Doppler of the right lower extremity which I mentioned previously, which was negative for DVT. He did have a chest x-ray, which shows emphysema with no acute disease. He had a CTA of the chest, which was negative for pulmonary emboli. The patient has been using a heating pad. This morning, we applied a lidocaine patch to the area, which the patient felt was beneficial. He was also given Toradol 30 mg IV x1 with some relief. However, he did ask for hydrocodone shortly after the Toradol. We will try Dilaudid 1 mg IV x1 today. I will get a physical therapy consultation to hopefully help this gentleman. Of note, his CK-MB in the emergency room was 6.51 with a normal range being 0.00- 3.60. His CK was normal and his troponin I was normal. Sodium was slightly low at 127. We did repeat the CK-MB today and that is pending. I also repeated a basic metabolic panel. Results are pending. Hemoglobin was 12.4 on admission and 11.8 yesterday. His white count has been normal. PHYSICAL EXAMINATION: VITAL SIGNS: Temp is 98.7, pulse is 93, respirations 20, blood pressure 155/85. He is oxygenating 97% on 2 L of oxygen. SKIN: Warm and dry to touch. He does have multiple ecchymotic areas on his upper extremities. He does have the ecchymotic area in the right inner thigh, which extends up to the right buttock. When compared to previous assessments, it appears to be absorbing. CARDIAC: Reveals S1, S2 to be normal. Rate and rhythm are regular. No murmur, click, or gallop is auscultated. LUNGS: Clear without rales, wheezes, or rhonchi. ABDOMEN: Soft, nontender. NEUROLOGIC: There is no neurovascular compromise noted. IMPRESSION: 1. Ecchymotic area of the right inner thigh with possible psoas involvement as documented in the emergency room record. Initially, it was felt that this was cellulitis. However, Dr. Gerard reassessed the patient and felt as though it was a broken blood vessel and he discontinued antibiotics. The patient has been afebrile with a normal white count. 2. Pain control. This is the patient's biggest problem at this time. We did try Toradol IV which was somewhat beneficial. We also tried Dilaudid 1 mg IV x1. He also had a lidocaine patch applied topically. He is using a heating pad. I did consult with Physical Therapy and asked them to evaluate the patient today. I do not feel comfortable sending him home with his pain still an issue. Initially, he said it was a 9/10 to 10/10 and after the Toradol, it was 7 on a scale of 0-10. 3. Severe chronic obstructive pulmonary disease. This is a chronic problem for the patient. He has no pulmonary emboli. His lungs sound good and he is oxygenating from 96% to actually 98% on 2 L of oxygen. I have discussed the patient with Dr. Gerard. I will shoot for hopefully discharging him home tomorrow or the next day. I know his living conditions are poor. The patient lives alone. The patient verbalizes the plan of care and is willing to proceed. He is a DNR/DNI. /[id number]/MODL
[2020-10-26] MEDS: predniSONE 10 MG Tab PO SCH (12:21)
[2020-10-26] MEDS ORDERED: Cyclobenzaprine 10 MG Tab PO PRN (12:46)
[2020-10-26] MEDS ORDERED: Codeine/guaiFENesin 10-100 MG/5 ML Syrup 5 ML Cup PO PRN (15:07)
[2020-10-26] MEDS: Ketorolac 30 MG/ML SDV IVPUSH SCH ×2 (15:37→23:33)
[2020-10-27] MEDS: Acetaminophen/HYDROcodone 325-5 MG Tab PO PRN (06:17)
[2020-10-27] MEDS: ALPRAZolam 0.25 MG Tab PO PRN (06:17)
[2020-10-27] MEDS: Aspirin 81 MG Tab.EC PO SCH (08:37)
[2020-10-27] MEDS: Hydrochlorothiazide 12.5 MG Cap PO SCH (08:37)
[2020-10-27] MEDS: Ketorolac 30 MG/ML SDV IVPUSH SCH (08:37)
[2020-10-27] MEDS: Lidocaine 5% 700 MG Patch TOP SCH (08:38)
[2020-10-27] MEDS: Roflumilast 500 MCG Tab PO SCH (08:38)
[2020-10-27] MEDS: Tiotropium Bromide 4 GM Inhalation Spray (2.5mcg/1 dose; 10 doses) INH SCH (08:38)
[2020-10-27] MEDS: Arformoterol 15 MCG/2 ML Neb Soln INH SCH (08:38)
[2020-10-27] MEDS: Lisinopril 20 MG Tab PO SCH (08:38)
[2020-10-27] MEDS: Budesonide 0.5 MG/2 ML Neb Susp INH SCH (08:38)
--- NOTE | 2020-10-27 09:19 | DISCH ---
HISTORY OF PRESENT ILLNESS: This is a 64-year-old male who was admitted to the emergency room on the 24 of October. He had an ecchymotic area on the inside of his right thigh. While in the emergency room, he had a CTA of his chest to rule out PE, which also had an incidental finding of asymmetrically enlarged psoas muscle representing a change since his last CAT scan. He has had quite a bit of pain in the inner thigh of the right leg. We have used Toradol as well as Dilaudid. He was receiving some oral hydrocodone as well. Yesterday, we put a lidocaine patch on the area. He was evaluated by Physical Therapy who gave him some exercises to do to help with the right inner thigh pain. The physical therapist also felt that this was a strained psoas muscle. The patient's CK-MB was elevated on admission, and it was repeated yesterday and found to be improved and trending downwards. Total CK and troponin I were actually normal. He is hyponatremic but not critically. Admission sodium was 127. BMP yesterday showed that his sodium had improved. The patient did have a venous Doppler of the right lower extremity which was negative for DVT. Calcium is low at 8.2. The patient states he feels better and would like to try to go home. If he fails discharge home, he may need to come back for readmission. Hopefully, this does not occur. The patient does have severe COPD and has been oxygenating pretty fairly well here. He does have oxygen at home. His O2 saturation is 97% to 99% on 2 L of oxygen. He has a regimen at home where he paces himself through his breathing treatments and his medications so as not to tire himself out. Yesterday, we also tried giving him Flexeril which I believe has been beneficial. PHYSICAL EXAMINATION: VITAL SIGNS/GENERAL: Temp is 98.5, pulse 100, respirations 20, blood pressure 111/55. He appears to be in no acute distress. However, he is tachypneic with any activity. His oxygen level is 97% on 2 L of oxygen. I will finish the exam after I actually examine the patient. He was in the middle of receiving his medications when I went into the room this morning. IMPRESSION: 1. Psoas muscle strain causing ecchymosis and pain of the right lower extremity. This has improved somewhat. He did have a physical therapy consultation and was provided exercises to perform at home. He will be discharged with Flexeril to be taken t.i.d. as needed. 2. Pain control. He has received Toradol as well as Dilaudid in the hospital and has improved. He has also improved with the Flexeril. He does have a topical lidocaine patch as well. 3. Severe chronic obstructive pulmonary disease. This is a chronic problem for the patient. He does not have a pulmonary embolism as evidenced from CTA of the chest. His lungs sound good, and he is oxygenating from 96% to 98% on 2 L of oxygen. The patient is discharging home. His living conditions are poor. He does live alone. He does have friends that check in on him periodically. He is a DNR/DNI. An addendum will be dictated with the physical exam and any other changes in my assessment. /[id number]/MODL
[2020-10-27] MEDS: Codeine/guaiFENesin 10-100 MG/5 ML Syrup 5 ML Cup PO PRN (10:22)
[2020-10-27] MEDS: predniSONE 10 MG Tab PO SCH (12:49)
[2020-10-27 12:50] VITALS: BP 136/78; PULSE 99
--- NOTE | 2020-10-28 12:46 | PN ---
10/26/2020 PATIENT NAME: ALBERTO MAS ADDENDUM: I reviewed the CT angio of the chest that was performed in the ED on 10/24/2020. It did show no pulmonary emboli on the final impression, however, it did state in the body of the report in the explanation of the findings that the right psoas muscle is asymmetrically enlarged representing a change since the last exam. When questioned further about trauma or injury, the patient states that he sits cross legged in what he describes as a "Buddha position." He at times leans forward to make it easier for him to look out the window if someone is driving by. He believes, he may have strained the muscle while sitting in this position. We repeated his CK-MB, which has improved from 6.51 to 4.15; however, it is still slightly elevated but trending downwards. Basic metabolic panel shows an improved sodium of 131 with an admission sodium of 127. His calcium is low at 8.2. His renal function is normal. He did improve after 1 dose of hydromorphone 1 mg. Due to the muscle involvement, I am going to trial Flexeril 10 mg t.i.d. p.r.n. Physical Therapy is coming in at 2 o'clock this afternoon to evaluate this patient. We will also use Toradol 30 mg IV every 8 hours for anti-inflammatory coverage. We will try to refrain from giving the patient any further narcotics due to the fact that he takes a cough syrup with codeine several times per day. /[id number]/MODL
--- NOTE | 2020-10-28 13:07 | DISCH ---
ADDENDUM: PHYSICAL EXAMINATION: VITAL SIGNS: Already documented. SKIN: Pale, warm, dry to touch. He does have an ecchymotic area on the right inner thigh, which has improved from my last assessment. He does have a lidocaine patch present over the area. CARDIAC: Reveals S1, S2 to be normal. Rate and rhythm are regular. No murmur, click, or gallop is auscultated. LUNGS: Clear without rales, wheezes, or rhonchi. However, the patient does become easily dyspneic with very little activity or even talking. ABDOMEN: Soft, nontender. Bowel sounds present in all 4 quadrants. There is no pedal edema. PLAN: The patient will be discharged with a topical lidocaine patch. He takes cough syrup with codeine at home. I am reluctant to send him home on any other narcotics. He has received hydrocodone here. However, I do not want him to have any further narcotics at home. He may take Naprosyn sodium as he has been taking at home. He has responded well to Toradol here. I believe the antiinflammatory properties of the Naprosyn will be beneficial for him. All of his other medications will be continued. /[id number]/MODL
== END 2020-10-27 13:40 | disposition home or self-care (01) | DRG 537 ==
LOC: KA.ED 09:00 → INTOOBSV 11:15 → KA.MS 11:15 → UNDOADMIN 11:29 → INTOOBSV 14:40 → OBSVTOIN 14:40
PROVIDERS: ADMIT Physician Assistant Medical; ATTEND Internal Medicine
DX: S76.911A Strain of unspecified muscles, fascia and tendons at thigh level, right thigh, initial encounter (principal); J44.1 Chronic obstructive pulmonary disease with (acute) exacerbation; I42.9 Cardiomyopathy, unspecified; J44.9 Chronic obstructive pulmonary disease, unspecified; L03.115 Cellulitis of right lower limb; K68.12 Psoas muscle abscess; Z66 Do not resuscitate; I10 Essential (primary) hypertension; I25.10 Atherosclerotic heart disease of native coronary artery without angina pectoris; E78.00 Pure hypercholesterolemia, unspecified; Z98.49 Cataract extraction status, unspecified eye; I25.2 Old myocardial infarction; M19.90 Unspecified osteoarthritis, unspecified site; F41.9 Anxiety disorder, unspecified; J30.1 Allergic rhinitis due to pollen; Z79.82 Long term (current) use of aspirin; Z91.09 Other allergy status, other than to drugs and biological substances; X58.XXXA Exposure to other specified factors, initial encounter; Z99.81 Dependence on supplemental oxygen; Z79.51 Long term (current) use of inhaled steroids; Z79.52 Long term (current) use of systemic steroids; Z79.899 Other long term (current) drug therapy; Z20.822 Contact with and (suspected) exposure to COVID-19
CPT/HCPCS: 36415; 71045; 71275; 80048; 80053; 82550; 82553; 83880; 84484; 85025; 85610; 85730; 93005; 93971; 94640; 96374; 96375; 97110-GP; 97161-GP; 99223; 99285-25; A9270-GY; J0696; J1170; J1885; J2270; J2405; J2930; J7030; J7512; J7620-GY; Q9967; U0002

== ENCOUNTER 2022-04-10 14:53 | Emergency (ER) | payer MEDICARE, MEDICAID ==
[2022-04-10 15:09] VITALS: BP 155/96; PULSE 105
[2022-04-10] MEDS ORDERED: hydrOXYzine HCl 25 MG Tab PO ONE (15:21)
[2022-04-10] MEDS ORDERED: Penicillin V Potassium 250 MG Tab PO STA (15:21)
[2022-04-10] MEDS ORDERED: Penicillin V Potassium 250 MG Tab PO SCH (16:30)
== END 2022-04-10 17:10 | disposition home or self-care (01) ==
LOC: KA.ED 14:53
DX: K02.9 Dental caries, unspecified (principal); T78.40XA Allergy, unspecified, initial encounter; I25.10 Atherosclerotic heart disease of native coronary artery without angina pectoris; I10 Essential (primary) hypertension; I25.2 Old myocardial infarction; J44.9 Chronic obstructive pulmonary disease, unspecified; M19.90 Unspecified osteoarthritis, unspecified site; Z91.048 Other nonmedicinal substance allergy status; Z79.82 Long term (current) use of aspirin; Z79.899 Other long term (current) drug therapy
CPT/HCPCS: 99283; A9270

== ENCOUNTER 2023-02-24 09:18 | Emergency (ER) | payer MEDICARE, MEDICAID ==
[2023-02-24] MEDS ORDERED: Ketorolac 30 MG/ML SDV IM ONE (10:27)
[2023-02-24] MEDS ORDERED: Ketorolac 30 MG/ML SDV ONE (10:28)
[2023-02-24 10:36] VITALS: BP 157/90; PULSE 100
== END 2023-02-24 10:40 | disposition home or self-care (01) ==
LOC: KA.ED 09:18
DX: S39.011A Strain of muscle, fascia and tendon of abdomen, initial encounter (principal); J44.9 Chronic obstructive pulmonary disease, unspecified; I10 Essential (primary) hypertension; I25.2 Old myocardial infarction; Z79.82 Long term (current) use of aspirin; Z79.899 Other long term (current) drug therapy; X58.XXXA Exposure to other specified factors, initial encounter
CPT/HCPCS: 96372; 99283; J1885

== ENCOUNTER 2023-04-19 08:51 | Emergency (ER) | payer MEDICARE, MEDICAID ==
[2023-04-19] MEDS ORDERED: Albuterol 0.042% 1.25 MG/3 ML Neb Soln ONE (09:13)
[2023-04-19 15:46] VITALS: BP 130/96; PULSE 90
== END 2023-04-19 10:20 | disposition home or self-care (01) ==
LOC: KA.ED 08:51
DX: R04.0 Epistaxis (principal); I25.2 Old myocardial infarction; I10 Essential (primary) hypertension; I25.10 Atherosclerotic heart disease of native coronary artery without angina pectoris; Z79.82 Long term (current) use of aspirin; Z91.048 Other nonmedicinal substance allergy status; Z79.899 Other long term (current) drug therapy
CPT/HCPCS: 99284

== ENCOUNTER 2023-08-01 11:53 | Emergency (ER) | payer MEDICARE, MEDICAID ==
[2023-08-01] MEDS: Succinylcholine 200 MG/10 ML MDV IVPUSH ONE (12:10)
[2023-08-01] MEDS ORDERED: Sodium Chloride 0.9% 1,000 ML ONE (12:15)
[2023-08-01] MEDS: Sodium Chloride 0.9% 1,000 ML IV ONE (12:17)
[2023-08-01] MEDS: Etomidate 2 MG/ML 10 ML SDV IVPUSH ONE (12:28)
[2023-08-01] MEDS ORDERED: fentaNYL 100 MCG/2 ML SDV ONE (12:30)
[2023-08-01] MEDS: fentaNYL 100 MCG/2 ML SDV IVPUSH ONE ×3 (12:32→14:02)
[2023-08-01] MEDS: Midazolam 1 MG/ML 2 ML SDV IVPUSH ONE (12:36)
[2023-08-01] MEDS: Norepinephrine Bit/0.9 % NaCl 4 MG in Premix Bag 1 BAG IV SCH (12:40)
[2023-08-01] MEDS: fentaNYL 100 MCG/2 ML SDV ONE (12:49)
[2023-08-01 16:49] VITALS: PULSE 99
[2023-08-01 16:51] VITALS: BP 93/66
== END 2023-08-01 14:11 ==
LOC: KA.ED 11:53
DX: J96.21 Acute and chronic respiratory failure with hypoxia (principal); J18.9 Pneumonia, unspecified organism; I10 Essential (primary) hypertension; E78.00 Pure hypercholesterolemia, unspecified; I25.10 Atherosclerotic heart disease of native coronary artery without angina pectoris; I25.2 Old myocardial infarction; M19.90 Unspecified osteoarthritis, unspecified site; Z79.82 Long term (current) use of aspirin; Z79.899 Other long term (current) drug therapy; Z88.8 Allergy status to other drugs, medicaments and biological substances; Z91.048 Other nonmedicinal substance allergy status
CPT/HCPCS: 31500; 51702; 96365; 96366; 96375; 96376; 99284; 99291-25; 99292; J0330; J2250; J3010; J3490; J7030; Q3014